=== PATIENT | female | born 1935 | race Hispanic/Latino ===

== ENCOUNTER 2016-10-18 14:31 | Outpatient (CLI) | payer MEDICARE, OTHER ==
--- NOTE | 2016-10-18 15:13 | XRay Report ---
X-RAY LEFT ANKLE 2 VIEWS: 10/18/16 14:31:00 CLINICAL: Trauma 2 days ago. Ankle pain and swelling. FINDINGS: A comminuted avulsion fracture of the calcaneus at the Achilles attachment. Several avulsed bone fragments with a major fragment measuring approximately 2 cm. The Achilles tendon may be attached to that large fragment. No other fractures are identified. The ankle mortise is intact. Soft tissue swelling. No foreign body or soft tissue air. IMPRESSION: Comminuted subacute traumatic closed avulsion fracture of the calcaneus at the Achilles attachment. Probable avulsion of the Achilles tendon. I gave a verbal report of these findings to Dr. Arthur at the time of the exam.
== END 2016-10-18 14:32 | disposition home or self-care (01) ==
LOC: SPVIMAG 14:31
PROVIDERS: ATTEND Internal Medicine
DX: S92.002D Unspecified fracture of left calcaneus, subsequent encounter for fracture with routine healing (principal); X58.XXXD Exposure to other specified factors, subsequent encounter